=== PATIENT | male | born 1990 | race Two or more races ===

== ENCOUNTER 2017-09-07 17:43 | Emergency (ER) | payer MEDICAID ==
[~2017-09-07] VITALS: Ht 175.3 cm; Wt 74.8 kg
[2017-09-07 17:50] VITALS: BP 125/77
[2017-09-07] MEDS ORDERED: IBUPROFEN 600 MG TAB PO ONE (19:45)
== END 2017-09-07 20:05 | disposition home or self-care (01) ==
LOC: ER 17:46
DX: S63.501A Unspecified sprain of right wrist, initial encounter (principal); S50.11XA Contusion of right forearm, initial encounter; W19.XXXA Unspecified fall, initial encounter; Y93.89 Activity, other specified; Y92.89 Other specified places as the place of occurrence of the external cause; Y99.8 Other external cause status
CPT/HCPCS: 29125; 73090; 73110

== ENCOUNTER 2018-10-03 18:24 | Emergency (ER) | payer MEDICAID ==
[~2018-10-03] VITALS: Ht 175.3 cm; Wt 83.0 kg
[2018-10-03 18:29] VITALS: BP 123/69
== END 2018-10-03 22:52 | disposition home or self-care (01) ==
LOC: ER 18:24
DX: J06.9 Acute upper respiratory infection, unspecified (principal); R51 Headache

== ENCOUNTER 2020-06-20 14:39 | Emergency (ER) | payer MEDICAID ==
[~2020-06-20] VITALS: Ht 175.3 cm; Wt 76.2 kg
[2020-06-20] MEDS ORDERED: ONDANSETRON ODT 4 MG TAB PO ONE (15:45)
[2020-06-20] MEDS ORDERED: HYDROcodone-ACET 7.5/325MG TAB PO ONE (15:45)
[2020-06-20 17:12] LABS: Basophils # (auto) 0.1 10 ^3/uL (0-0.2); Basophils % (auto) 0.7 % (0.0-2.0); Eosinophils # (auto) 0.1 10 ^3/uL (0-0.8); Hematocrit 49.8 % (41.0-53.0); Lymphocytes # (auto) 2.7 10 ^3/uL (0.4-5.4); Lymphocytes % (auto) 37.1 % (10.0-50.0); Mean Corpuscular Hemoglobin 28.4 pg (28.0-32.0); Mean Corpuscular Hgb Conc. 32.2 g/dL (32.0-36.0); Mean Corpuscular Volume 88.4 fL (80.0-100.0); Monocytes # (auto) 0.6 10 ^3/uL (0-1.3); Monocytes % (auto) 7.8 % (0.0-12.0); Neutrophils # (auto) 3.8 10 ^3/uL (1.6-8.6); Neutrophils % (auto) 52.4 % (37.0-80.0); Nucleated Red Blood Cells % 0.1 %; Platelet Count (auto) 331 10^3/uL (140-450); Red Blood Cells 5.63 10^6/uL (4.5-5.90); Red Cell Distribution Width 12.9 % (11.8-14.3); White Blood Cell 7.2 10^3/uL (4.4-10.8)
[2020-06-20] MEDS ORDERED: cefTRIAXone W LIDOCAINE 500 MG IM IM ONE (17:15)
[2020-06-20 17:24] LABS: Urine Bacteria NONE SEEN /hpf (None Seen); Urine Blood 1+ /uL (Negative); Urine Mucus FEW (None Seen); Urine Specific Gravity 1.028 (1.001-1.035); Urine WBC <1 /hpf (0 - 3)
[2020-06-20] MEDS ORDERED: cefTRIAXone SOD 500 MG VL ONE (18:05)
[2020-06-20] MEDS ORDERED: LIDOCAINE 1% HCL (LOCAL ANESTH.) INJ 20ML MDV ONE (18:06)
[2020-06-20 19:20] VITALS: BP 122/80
[2020-06-20 21:29] LABS: Albumin 4.3 g/dL (3.4-5.0); Calcium 8.6 mg/dL (8.5-10.1); Potassium 3.8 mmol/L (3.5-5.1)
[2020-06-20 22:00] LABS: BUN/Creatinine Ratio 10.3; Bilirubin, Total 0.8 mg/dL (0.2-1.0); Total Protein 8.1 g/dL (6.4-8.2)
[2020-06-20 22:26] LABS: Alcohol, Urine < 3.0 mg/dL (0-10); Amphetamine Screen, Urine NEGATIVE (NEGATIVE); Barbiturate Scree,Urine NEGATIVE (NEGATIVE); Benzodiazephine Screen, Urine NEGATIVE (NEGATIVE); Cannabinoid Screen, Urine NEGATIVE (NEGATIVE); Cocaine Screen, Urine NEGATIVE (NEGATIVE); Opiate Scree,Urine NEGATIVE (NEGATIVE); Phencyclidine Screen, Urine NEGATIVE (NEGATIVE)
== END 2020-06-20 20:22 | disposition home or self-care (01) ==
LOC: ER 14:39
DX: I86.1 Scrotal varices (principal); Z90.89 Acquired absence of other organs
CPT/HCPCS: 36415; 74176; 76870; 80053; 80307; 81001; 82150; 83690; 85025; 96372; 99285; J0696; J2001; Q0162

== ENCOUNTER → 2021-08-21 | Emergency (ER) | payer MEDICAID, OTHER ==
[~2021-08-21] VITALS: Ht 175.3 cm; Wt 82.6 kg
[2021-08-21 19:33] VITALS: BP 122/80
== END | disposition home or self-care (01) ==
LOC: EDUNIT# 14:57 → EDSEX 14:58 → EDBD 14:58 → ER 14:58
DX: S46.812A Strain of other muscles, fascia and tendons at shoulder and upper arm level, left arm, initial encounter (principal); S33.5XXA Sprain of ligaments of lumbar spine, initial encounter; M62.838 Other muscle spasm; Z90.49 Acquired absence of other specified parts of digestive tract; V49.9XXA Car occupant (driver) (passenger) injured in unspecified traffic accident, initial encounter; Y93.89 Activity, other specified; Y92.89 Other specified places as the place of occurrence of the external cause; Y99.8 Other external cause status
CPT/HCPCS: 73030